=== PATIENT | female | born 1990 | race Caucasian/White ===

== ENCOUNTER → 2019-02-14 | Outpatient (CLI) | payer OTHER, MEDICAID ==
--- NOTE | 2019-02-26 23:46 | ECWPNPC ---
PATIENT NAME: SOSA CHASE : 1990 GENDER: FEMALE VISIT DATE: 02/14/2019 DISCHARGE DATE: 02/14/19 1451 VISIT LOCKED DATE TIME: PHYSICIAN: BRIONNA LERMA MD RESOURCE: BRIONNA LERMA MD REASON FOR APPOINTMENT 1. CHRONIC BACK PAIN HISTORY OF PRESENT ILLNESS PAIN SCREENING: PATIENT HAS A COMPLAINT OF ACUTE OR CHRONIC PAIN :YES 28 YEAR OLD FEMALE PATIENT WITH A HISTORY OF CHRONIC LOW BACK PAIN. THE PATIENT DESCRIBES THE PAIN STABBING, SHARP, TENDER, SORE, AND CONTINUOUS WITH A PAIN SCORE OF 8-10/10 DEPENDING ON PHYSICAL ACTIVITY. THE PATIENT SAYS THE PAIN BEGINS IN HER LOW BACK AND RADIATES TOWARDS HER LEFT HIP AND DOWN BOTH LEGS, BUT HER LEFT LEG IS AFFECTED MORE THAN THE RIGHT LEG. THE PATIENT STATES THE PAIN BEGAN IN 2007 AFTER HAVING HER SECOND SON. THE PATIENT SAYS THE PAIN AFFECTS HER ABILITY TO PERFORM HER DAILY ACTIVITIES SUCH CLEANING, COOKING, STANDING TO WASH DISHES, AND GROCERY SHOPPING. THE PATIENT SAYS THE PAIN INCREASES WITH PHYSICAL ACTIVITY SUCH HOUSE KEEPING, HEAVY LIFTING, WALKING, AND SIMPLY STANDING AND SHE MUST TAKE BREAKS IN BETWEEN TO EASE THE PAIN. THE PATIENT MENTIONS SHE HAS TRIED PHYSICAL THERAPY IN THE PAST, HOWEVER IT DID NOT HELP AND ACTUALLY MADE THE PAIN WORSE. , PATIENT DENIES UNEXPLAINABLE WEIGHT LOSS, FEVER, CHILLS, NEW CHANGES ON HER URINARY OR BOWEL CONTROL. FALL RISK SCREENING: SCREENING :NO FALLS REPORTED IN THE LAST YEAR CURRENT MEDICATIONS TAKING MEDROXYPROGESTERONE ACETATE 150 MG/ML SUSPENSION INJECT INTRAMUSCULARLY EVERY 3 MONTHS RETURN TO CLINIC WITH MEDICATION INTRAMUSCULAR TAKING OXYCODONE-ACETAMINOPHEN 5-325 MG TABLET 1 TABLET ORALLY DAILY NEEDED, NOTES: [id number] TAKING GABAPENTIN 800 MG TABLET 1 TAB ORALLY THREE TIMES DAILY TAKING SUMATRIPTAN SUCCINATE 25 MG TABLET TAKE ONE TABLET BY MOUTH AT ONSET OF HEADACHE NEEDED REPEAT IN 2 HOURS IF HEADACHE CONTINUES DIRECTED MAXIMUM DAILY DOSE 2 TABLETS ORAL NOT-TAKING CHANTIX CONTINUING MONTH SANFORD 1 MG TABLET 1 TABLET ORALLY TWICE A DAY NOT-TAKING CHANTIX STARTING MONTH SANFORD 0.5 MG X 11 & 1 MG X 42 TABLET DIRECTED ORALLY DIRECTED NOT-TAKING CLINDAMYCIN HCL 300 MG CAPSULE 1 CAPSULES ORALLY FOUR TIMES DAILY MEDICATION LIST REVIEWED AND RECONCILED WITH THE PATIENT PAST MEDICAL HISTORY LOW BACK PAIN MIGRAINE ALLERGIES SULFA (FOR ALLERGY USE ONLY): NAUSEA/VOMITING - SIDE EFFECTS TRAMADOL HCL: HEADACHE - SIDE EFFECTS MOTRIN: GI UPSET - SIDE EFFECTS SURGICAL HISTORY NO SURGICAL HISTORY DOCUMENTED. FAMILY HISTORY FATHER: ALIVE, DIAGNOSED WITH HYPERTENSION MOTHER: ALIVE, CANCER, HYPERTENSION SIBLINGS: ALIVE, OTHER SON(S): ALIVE, ONE SON PREMATURE PATERNAL GRAND FATHER: PATERNAL GRAND MOTHER: MATERNAL GRAND FATHER: MATERNAL GRAND MOTHER: , OTHER 1 SISTER(S) - HEALTHY. 2 SON(S) - HEALTHY. FAMILY HISTORY IS POSITIVE FOR HYPERTENSION. MATERNAL GRANDMOTHER WITH BREAST CANCER, MOTHER BREAST CANCER, ALZHEIMERS. SISTER IBS. MATERNAL GRANDMOTHER ALZIEHIMERS.ONE SON WITH CEREBRAL PALSY. SOCIAL HISTORY GENERAL: TOBACCO USE ARE YOU A:CURRENT SMOKER ARE YOU INTERESTED IN QUITTING?READY TO QUIT PREVIOUS QUIT ATTEMPTS?YES, WITHIN THE LAST 6 MONTHS. COUNSELED THE PATIENT ON TOBACCO USE, CESSATION [id number]/16/2019 ASSIST (PHARMACOTHERAPY AND COUNSELING)ADVISED TO CALL [facility] QUITLINE [phone] [employer] ARRANGEADVISED TO CALL [facility] TOBACCO CESSATION HOW MANY CIGARETTES A DAY DO YOU SMOKE?5 OR LESS HOW SOON AFTER YOU WAKE UP DO YOU SMOKE YOUR FIRST CIGARETTE?31-60 MIN HOW OFTEN DO YOU SMOKE CIGARETTES?SOME DAYS, BUT NOT EVERY DAY PATIENT COUNSELED ON THE DANGERS OF TOBACCO USE AND URGED TO QUIT:02/14/2019 ADDITIONAL FINDINGS: TOBACCO USERLIGHT CIGARETTE SMOKER ((1-9 CIGS/DAY) SMOKING CESSATION INFORMATION GIVEN12/21/2018 VAPORNO E-CIGARETTENO HIV / HEP-C SCREENING HIV TEST OFFERED TO PATIENT:YES DATE OFFERED:12/21/2018 TEST ACCEPTED:NO HEP-C TEST OFFERED TO PATIENT:NO -N/A REASON:PATIENT DECLINED BROCHURE PROVIDED TO PATIENTNO OTHERS AT HOME: SPOUSE, CHILD, IN-LAW. EDUCATION LEVEL OF EDUCATION:NOT FINISHED HIGH SCHOOL DIET: REGULAR. LANGUAGE LANGUAGES SPOKEN:AMHARIC DOMESTIC VIOLENCE DO YOU FEEL SAFE IN YOUR ENVIRONMENT?YES RECREATIONAL DRUG USE DRUG USE?NO EXERCISE: NO REGULAR EXERCISE. LEARNING BARRIERS / SPECIAL NEEDS CHANGE FROM LAST VISIT?NO 02/09/2019 BARRIERS TO LEARNING?NO HEARING IMPAIRED?NO VISION IMPAIRED?YES COGNITIVELY IMPAIRED?NO :CORRECTIVE LENSES READINESS TO LEARN?YES LEARNING PREFERENCES?NO LEARNING CAPABILITIES PRESENT?YES EMOTIONAL BARRIERS?NO SPECIAL DEVICES?NO SUBWAY REPAIR SUPERVISOR NEEDED?NO PAIN CLINIC PFS, CLERGY, PUBLIC HEALTH REFERRALS HAS THE PATIENT BEEN EDUCATED REGARDING HIS/HER PLAN OF CARE?YES HAS THE PATIENT BEEN EDUCATED REGARDING PAIN, THE RISK FOR PAIN, THE IMPORTANCE OF EFFECTIVE PAIN MANAGEMENT, AND THE PAIN ASSESSMENT PROCESS?YES LATEX QUESTIONNAIRE LATEX ALLERGY : HAVE YOU EVER DEVELOPED ANY TYPE OF REACTION AFTER HANDLING LATEX PRODUCTS SUCH RUBBER GLOVES, CONDOMS, DIAPHRAGMS, BALLOONS, SOCKS, OR UNDERWEAR?NO LATEX ALLERGY : HAVE YOU EVER DEVELOPED ANY TYPE OF REACTION DURING OR AFTER DENTAL APPOINTMENT, VAGINAL/RECTAL EXAMINATION, SURGICAL PROCEDURE, OR ANY OTHER EXPOSURE?NO DATE ASKED : 12/21/2018 LATEX RISK : HAVE YOU EVER HAD ANY DIFFICULTY BREATHING OR HIVES AFTER EATING OR HANDLING ANY FRUITS, OR VEGETABLES; SUCH KIWI, BANANAS, STONE FRUITS, OR CHESTNUTSNO LATEX RISK : DO YOU HAVE A PREVIOUS PERSONAL HISTORY OF MORE THAN NINE SURGERIES, SPINA BIFIDA, OR REPEATED CATHERTIZATIONS? NO LATEX RISK : ARE YOU FREQUENTLY EXPOSED TO LATEX PRODUCTS IN YOUR OCCUPATION?NO CAFFEINE CAFFEINE USE?YES HOW OFTEN AND HOW MUCH? LOTS OF SODA ADVANCE DIRECTIVE ADVANCE DIRECTIVE DISCUSSED WITH PATIENT:YES PT HAS NO ADVANCED DIRECTIVES, INFORMATION GIVEN , DENIES ASSISTANCE AT THIS TIME CAODAISM CAODAISM NO VOODOO BELIEFS THAT WOULD IMPACT HEALTH CARE. MARITAL STATUS: . ALCOHOL SCREENING DID YOU HAVE A DRINK CONTAINING ALCOHOL IN THE PAST YEAR?YES HOW OFTEN DID YOU HAVE SIX OR MORE DRINKS ON ONE OCCASION IN THE PAST YEAR?NEVER (0 POINTS) HOW MANY DRINKS DID YOU HAVE ON A TYPICAL DAY WHEN YOU WERE DRINKING IN THE PAST YEAR?1 OR 2 (0 POINTS) HOW OFTEN DID YOU HAVE A DRINK CONTAINING ALCOHOL IN THE PAST YEAR?MONTHLY OR LESS (1 POINT) POINTS1 INTERPRETATIONNEGATIVE OCCUPATION: SEASONAL. SEXUAL HX HAD SEX IN THE LAST 12 MONTHS (VAGINAL, ORAL, OR ANAL)?NO LMP:09/15/2018 HAVE YOU EVER HAD AN STD?NO REVIEWED WITH PT 02/14/19 1330 LAS. HOSPITALIZATION/MAJOR DIAGNOSTIC PROCEDURE HIGH FEVER INFANT CHILD REVIEW OF SYSTEMS REVIEWED BY: PROVIDER: BRIONNA LERMA MD . CONSTITUTIONAL: ANY CHANGE IN YOUR MEDICAL CONDITION? NO . CHILLS NO . FEVER NO . INFECTION: DO YOU HAVE NEW INFECTIONS? NO . DO YOU HAVE HISTORY OF MRSA? NO . MUSCULOSKELETAL: ANY NEW PATTERNS OF PAIN OR NUMBNESS? PT REPORTS PAIN ALONG LOW BACK, OCCASIONALLY RADIATES DOWN LEFT LEG. STATES IT STARTED HURTING AFTER HER SECOND CHILD, BUT NOT SEVERE NOW. WORKED A [employer]. NOW DESCRIBES PAIN SHARP, STABBING PAIN, CONTINUOUS AND WAKENS HER FROM SLEEP. HAS TRIED PHYSICAL THERAPY, REST/ICE/HEAT. . SYTEMIC LUPUS NO . GASTROENTEROLOGY: ANY NEW CHANGE IN BOWEL CONTROL? NO . BARRETTS ESOPHAGUS NO . CIRRHOSIS NO . HEPATITIS NO . LIVER FAILURE NO . ACID REFLUX NO . UNEXPLAINED WEIGHT LOSS NO . GENITOURINARY: ANY NEW CHANGE IN BLADDER CONTROL? NO . IS THERE A CHANCE YOU COULD BE ? NO . HEMATOLOGY/LYMPH: DO YOU TAKE ANY BLOOD THINNERS? (FOR EXAMPLE- COUMADIN, PLAVIX, AGGRENOX, PLATEL, PRADAXA, OR XARELTO) NO . WHEN WAS YOUR LAST DOSE? DATE: TIME: . LOW PLATELET COUNT NO . SICKLE CELL DISEASE NO . VON WILLIEBRANDS NO . FACTOR V LEIDEN NO . THALLASEMIA NO . ANEMIA NO . EASY BRUISING NO . NEUROLOGY: HAVE YOU FALLEN IN THE PAST 12 MONTHS? NO . ANY NEW EXTREMITY NUMBNESS OR WEAKNESS? NO . HEAD INJURY NO . DEMENTIA NO . CEREBRAL PALSY NO . MULTIPLE SCLEROSIS NO . DIZZINESS NO . HEADACHE REPORTS MIGRAINES WITH WEATHER CHANGES, TAKES TYLENOL OR IMITREX . STROKES NO . VERTIGO NO . CARDIOLOGY: DO YOU HAVE A PACEMAKER OR DEFIBRILLATOR? NO . ANGINA NO . HEART ATTACK NO . HEART SURGERY NO . CONGESTIVE HEART FAILURE/FLUID OVERLOAD NO . CHEST PAIN NO . HIGH BLOOD PRESSURE NO . IRREGULAR HEART BEAT NO . RESPIRATORY: HAVE YOU BEEN SICK IN THE PAST WEEK? NO . FEVER NO . FLU LIKE SYMPTOMS? NO . CPAP NO . BYPAP NO . ASTHMA NO . EMPHYSEMA NO . CHRONIC LUNG DISEASES NO . SHORTNESS OF BREATH ON EXERTION NO . COUGH NO . SNORING NO . INTEGUMENTARY: DO YOU HAVE ANY RASHES OR OPEN SORES? NO . ALLERGIC/IMMUNO: ARE YOU ALLERGIC TO IV DYE? NO . ANY NEW ALLERGIES? NO . PSYCHIATRIC: DO YOU HAVE THOUGHTS OF HURTING YOURSELF OR SOMEONE ELSE? NO . ARE YOU ABUSED, NEGLECTED, OR IN AN UNSAFE ENVIRONMENT? NO . ENDOCRINOLOGY: ARE YOU DIABETIC? NO . THYROID DISORDER NO . OTHER: DO YOU NEED ANY PRESCRIPTIONS? NO . IF YES, PLEASE LIST: ____ . ANY NEW PROBLEMS WITH YOUR MEDICATIONS? NO . WHEN DID YOU LAST EAT? ____ . WHEN DID YOU LAST DRINK? ____ . WHAT DID YOU LAST DRINK? ____ . NAME OF PERSON DRIVING YOU HOME? ____ . DO YOU HAVE ANY OTHER QUESTIONS OR CONCERNS NO . VITAL SIGNS WT 138.2 LBS, HT 60 1/4, BMI 26.76 INDEX, BP 140/87 MM HG, HR 101 /MIN, RR 18 /MIN, TEMP 98.2 F, OXYGEN SAT % 100%, NA INITIALS AW 1337. EXAMINATION GENERAL EXAMINATION: PATIENT IS ALERT O X 3 AND COOPERATIVE. LUNGS CLEAR, TO AUSCULTATION. HEART: NO MURMURS OR GALLOPS; FACIAL CRANIAL NERVES ARE GROSSLY NORMAL. GOOD SYMMETRY OF FACIAL MUSCLE MOVEMENT. NORMAL VISUAL MULLIGAN. PATIENT IS LIMPING FROM THE LEFT LEG. LEFT LEG IS WEAKER AT EXTENSION AND FLEXION. STRAIGHT LEG RAISE OF THE LEFT LEG IS POSITIVE AT 50 DEGREES FOR RADICULOPATHY. TENDERNESS IN THE LOW BACK. MRI OF THE LUMBAR SPINE DONE ON 07/13/2018 SHOWS BULGING DISCS AT L4-L5 LEVEL. ASSESSMENTS INTERVERTEBRAL DISC DISORDER WITH RADICULOPATHY OF LUMBAR REGION - M51.16 (PRIMARY) INTERVERTEBRAL DISC DISORDER WITH RADICULOPATHY OF LUMBOSACRAL REGION - M51.17 TREATMENT INTERVERTEBRAL DISC DISORDER WITH RADICULOPATHY OF LUMBAR REGION CLINICAL NOTES: WE DISCUSSED SEVERAL ISSUES WITH MS. CHASE'S PAIN MANAGEMENT CASE. DUE TO THE LUMBAR RADICULOPATHY, I WOULD LIKE TO MOVE FORWARD WITH A LUMBAR EPIDURAL STEROID INJECTION AT THIS TIME. WE DISCUSSED THE BENEFITS, RISKS, AND ALTERNATIVES OF THE INJECTION AND THE PATIENT WOULD LIKE TO PROCEED. THE PATIENT WILL FOLLOW UP IN SEVERAL WEEKS AFTER THE INJECTION. INSTRUCTIONS WERE GIVEN, QUESTIONS WERE ANSWERED, PATIENT REPORTS UNDERSTANDING AND AGREES WITH THE PLAN. I, MAGGIE PEREZ, DOCUMENTED THE ABOVE INFORMATION ACTING A SCRIBE FOR DR. LERMA. I HAVE REVIEWED THE ABOVE DOCUMENT, WRITTEN BY MAGGIE LYNCHIBNikki AND I VERIFY THAT IT IS ACCURATE. DEAR ARTHUR MILLS, DO: THANK YOU FOR YOUR KIND REFERRAL OF SOSA CHASE. IF YOU WANT TO DISCUSS HER CASE WITH ME PLEASE CALL ME AT THE PAIN CENTER AT [phone]. SINCERELY, BRIONNA LERMA MD PAIN MEDICINE . OTHERS NOTES: WHAT IS LUMBAR EPIDURAL INJECTION? MATERIAL WAS PRINTED,LUMBAR EPIDURAL INJECTION: YOUR PROCEDURE MATERIAL WAS PRINTED. PREVENTIVE MEDICINE PAIN CLINIC TEACHING: PROCEDURE TEACHING LUMBAR EPIDURAL TEACHING HANDOUT PRINTED AND REVIEWED WITH PT. PRE PROCEDURE INSTRUCTIONS REVIEWED WITH PT. 02/14/19 1500 LAS. PROCEDURE CODES FA211 ESTABILISHED PATIENT [facility] CHARGE G8427 CURRENT MEDS W/DOSAGES DOCUMENTED G8730 PAIN ASSESS POS TOOL F/U PLAN DOC DISPOSITION & COMMUNICATION FOLLOW UP 4 WEEKS (REASON: LESI) ELECTRONICALLY SIGNED BY BRIONNA LERMA MD, MD ON 02/26/2019 AT 05:01 PM EDT DISCLAIMER : THIS IS A VISIT SUMMARY EXTRACTED FROM THE [employer] CHART. IT IS NOT A COPY OF THE [employer] PROGRESS NOTE. MTDD
== END ==
LOC: M PAIN 13:15
PROVIDERS: ATTEND Anesthesiology
DX: M51.16 Intervertebral disc disorders with radiculopathy, lumbar region (principal); M51.17 Intervertebral disc disorders with radiculopathy, lumbosacral region; G89.29 Other chronic pain; G43.909 Migraine, unspecified, not intractable, without status migrainosus; F17.210 Nicotine dependence, cigarettes, uncomplicated; Z88.2 Allergy status to sulfonamides; Z88.5 Allergy status to narcotic agent; Z88.6 Allergy status to analgesic agent; Z79.899 Other long term (current) drug therapy

== ENCOUNTER → 2019-05-05 | Outpatient (CLI) | payer OTHER, MEDICAID ==
[~2019-05-05] MED LIST: ISOVUE-M 200 41% 20ML VIAL (Q9966) As Ordered ONE; LIDOCAINE 1% SDV INJ 30 ML VIAL As Ordered ONE; diazePAM 5 MG TAB As Ordered ONE; methylPREDNISolone SUSP 40 MG/ML (DEPO-medrol) VIAL (J1030) As Ordered ONE; oxyCODONE 5MG TAB As Ordered ONE
--- NOTE | 2019-05-05 14:25 | REP ---
Partial lumbar spine series: Two views . History: Injection procedure for pain. 15 seconds of fluoroscopy time is reported. Findings: A sequence of two fluoroscopically obtained last image hold procedural spot radiographs of the lumbar spine document needle position and contrast injection associated with injection procedure. Electronically Signed by Sebastian Ceron MD 05/05/2019 02:16 P
--- NOTE | 2019-05-13 02:52 | ECWPNPC ---
PATIENT NAME: SOSA CHASE : 1990 GENDER: FEMALE VISIT DATE: 05/05/2019 DISCHARGE DATE: 05/05/19 1322 VISIT LOCKED DATE TIME: PHYSICIAN: BRIONNA LERMA MD RESOURCE: BRIONNA LERMA MD REASON FOR APPOINTMENT 1. LESI CURRENT MEDICATIONS TAKING GABAPENTIN 800 MG TABLET 1 TAB ORALLY THREE TIMES DAILY, NOTES: 05/04/191999 TAKING RIZATRIPTAN BENZOATE 10 MG TABLET DISINTEGRATING 1 TABLET ON THE TONGUE AND ALLOW TO DISSOLVE NEEDED ONE TIME ORALLY ONCE A DAY NEEDED: MAY REPEAT Q2H X 2 DOSES, NOTES: . 2 WEEKS TAKING OXYCODONE-ACETAMINOPHEN 5-325 MG TABLET 1 TABLET ORALLY DAILY NEEDED, NOTES: 05/04/191999 NOT-TAKING MEDROXYPROGESTERONE ACETATE 150 MG/ML SUSPENSION INJECT INTRAMUSCULARLY EVERY 3 MONTHS RETURN TO CLINIC WITH MEDICATION INTRAMUSCULAR , NOTES: > 1 YEAR NOT-TAKING CHANTIX CONTINUING MONTH SANFORD 1 MG TABLET 1 TABLET ORALLY TWICE A DAY NOT-TAKING CHANTIX STARTING MONTH SANFORD 0.5 MG X 11 & 1 MG X 42 TABLET DIRECTED ORALLY DIRECTED NOT-TAKING CLINDAMYCIN HCL 300 MG CAPSULE 1 CAPSULES ORALLY FOUR TIMES DAILY MEDICATION LIST REVIEWED AND RECONCILED WITH THE PATIENT PAST MEDICAL HISTORY LOW BACK PAIN MIGRAINE ALLERGIES SULFA (FOR ALLERGY USE ONLY): NAUSEA/VOMITING - SIDE EFFECTS TRAMADOL HCL: HEADACHE - SIDE EFFECTS MOTRIN: GI UPSET - SIDE EFFECTS SURGICAL HISTORY NO SURGICAL HISTORY DOCUMENTED. FAMILY HISTORY NO FAMILY HISTORY DOCUMENTED. HOSPITALIZATION/MAJOR DIAGNOSTIC PROCEDURE NO HOSPITALIZATION HISTORY. VITAL SIGNS WT 141 LBS, HT 60 1/4, BMI 27.31 INDEX, BP 137/90 MM HG, HR 106 /MIN, RR 18 /MIN, TEMP 97.6 F, OXYGEN SAT % 100%, SAFE IN ENV? (Y/N) YES, NA INITIALS HI 10:46, REVIEWED BY: ASSESSMENTS INTERVERTEBRAL DISC DISORDER WITH RADICULOPATHY OF LUMBAR REGION - M51.16 (PRIMARY) TREATMENT INTERVERTEBRAL DISC DISORDER WITH RADICULOPATHY OF LUMBAR REGION [facility] FLUORO GUIDE SPINE INJECTION (PAIN)[id number] PROCEDURES PRE PROCEDURE DIAGNOSIS LUMBAR SPINAL STENOSIS POST PROCEDURE DIAGNOSIS LUMBAR SPINAL STENOSIS PROCEDURE LUMBAR EPIDURAL STEROID INJECTION UNDER FLUOROSCOPIC GUIDANCE SURGEON DR. BRIONNA LERMA FOOD EXPEDITOR NONE ANESTHESIA LOCAL PRE PROCEDURE NOTE THE PATIENT HAS A HISTORY OF CHRONIC LOW BACK PAIN. I EVALUATED THE PATIENT AND REVIEWED THE CHART. I WENT OVER THE RISKS, ALTERNATIVES, AND BENEFITS ASSOCIATED WITH THIS PROCEDURE. THE PATIENT WOULD LIKE TO PROCEED AND GIVES CONSENT TO PERFORM THE PROCEDURE. THE PATIENT DENIES UNEXPLAINABLE WEIGHT LOSS, FEVER, CHILLS, OR NEW CHANGES IN URINARY OR BOWEL CONTROL. DESCRIPTION OF PROCEDURE THE PATIENT WAS BROUGHT TO THE PROCEDURE ROOM AND PLACED IN THE PRONE POSITION. THE LUMBOSACRAL AREA WAS CLEANED WITH BETADINE SOLUTION AND DRAPED ASEPTICALLY. THE PROCEDURE WAS DONE UNDER STERILE CONDITIONS. I CHECKED LATERALITY AND THE LEVEL WHERE THE PROCEDURE WAS GOING TO BE PERFORMED WITH THE PATIENT AND THE SUPPORTING STAFF AT THE MOMENT OF THE TIME OUT IN THE PROCEDURE ROOM. UNDER FLUOROSCOPIC GUIDANCE, THE TARGET POINT WAS SELECTED AT THE INTERLAMINAR LEVEL OF L4-L5. LIDOCAINE WAS USED TO NUMB THE SKIN AND THE SUBCUTANEOUS TISSUE BELOW IT. EPIDURAL TUOHY NEEDLE, 17-GAUGE, WAS ADVANCED UNDER FLUOROSCOPIC GUIDANCE AND FOLLOWING PATIENT FEEDBACK UNTIL THE EPIDURAL SPACE WAS REACHED, 7 CM DEEP INTO THE SKIN BY THE LOSS OF RESISTANCE TECHNIQUE. ISOVUE M DYE 30%, 0.25 ML, WAS INJECTED SHOWING ADEQUATE SPREAD OF THE DYE. THEN, A SOLUTION OF 3 ML OF NORMAL SALINE WITH DEPO-MEDROL 60 MG WAS INJECTED SLOWLY FOLLOWING PATIENT FEEDBACK. THERE WAS NO EVIDENCE OF BLOOD, PARESTHESIA OR CEREBROSPINAL FLUID DURING THE PROCEDURE. THE PATIENT WAS SENT TO THE RECOVERY ROOM. THE PATIENT WAS MOVING THE EXTREMITIES AND DOING WELL. THERE WAS NO COMPLICATION DURING THE PROCEDURE. FLUOROSCOPY TIME WAS 15 SECONDS. POST PROCEDURE NOTE THE PATIENT WILL BE SEEN IN A FOLLOW UP IN THE NEXT FEW WEEKS. INSTRUCTIONS WERE GIVEN, QUESTIONS WERE ANSWERED, AND THE PATIENT EXPRESSED UNDERSTANDING AND AGREES WITH THE PLAN. I, MAGGIE PEREZ, DOCUMENTED THE ABOVE INFORMATION ACTING A SCRIBE FOR DR. LERMA. I HAVE REVIEWED THE ABOVE DOCUMENT, WRITTEN BY MAGGIE PEREZ SCRIBNikki AND I VERIFY THAT IT IS ACCURATE. PROCEDURE CODES 26951 LUMBAR/SACRAL W/ IMAGING [id number] RADXPS IN END [id number] PXD DISPOSITION & COMMUNICATION FOLLOW UP 2 WEEKS ELECTRONICALLY SIGNED BY BRIONNA LERMA MD, MD ON 05/12/2019 AT 01:33 PM EDT DISCLAIMER : THIS IS A VISIT SUMMARY EXTRACTED FROM THE [employer] CHART. IT IS NOT A COPY OF THE [employer] PROGRESS NOTE. MTDD
== END ==
LOC: M PAIN 10:45
PROVIDERS: ATTEND Anesthesiology
DX: M51.16 Intervertebral disc disorders with radiculopathy, lumbar region (principal); G43.909 Migraine, unspecified, not intractable, without status migrainosus; Z88.2 Allergy status to sulfonamides; Z88.5 Allergy status to narcotic agent; Z88.6 Allergy status to analgesic agent; Z79.891 Long term (current) use of opiate analgesic; Z79.899 Other long term (current) drug therapy
CPT/HCPCS: 62323; J1030; Q9966

== ENCOUNTER → 2019-07-25 | Outpatient (REF) | payer OTHER | LOC: M SFHCCLAY 14:54 | PROVIDERS: ATTEND Family Medicine | DX: Z79.891 Long term (current) use of opiate analgesic (principal) ==

== ENCOUNTER → 2019-08-25 | Outpatient (REF) | payer OTHER | LOC: M SFHCCLAY 14:05 | PROVIDERS: ATTEND Family Medicine | DX: M54.5 Low back pain (principal) ==

== ENCOUNTER → 2019-11-14 | Outpatient (REF) | payer OTHER | LOC: M SFHCCLAY 15:32 | PROVIDERS: ATTEND Family Medicine | DX: Z79.891 Long term (current) use of opiate analgesic (principal) ==